=== PATIENT | female | born 1990 | race Caucasian/White ===

== ENCOUNTER 2018-04-29 09:39 | Day surgery (SDC) | payer OTHER ==
--- NOTE | 2018-04-29 07:29 | PDHPUP ---
History & Physical Update H&P update statement: This history and physical update is based on an assessment of the patient which was completed after admission or registration (within 24 hours), but prior to the surgery/procedure. H&P update: H&P reviewed & patient examined, no change in patient's condition since H&P completed
--- NOTE | 2018-04-29 07:30 | POSTOPPROG ---
Post Op Note Date of Operation: 04/29/18 Surgeon: Trevon Lai Anesthesia: IV Sedation Pre-op Diagnosis: lymphoma Post-op Diagnosis: same Procedure: RIJ port with US/fluoro, left ext iliac LN biopsy Inf/Abcess present in the surg proc area at time of surgery?: No EBL: Minimal Specimen(s): lymph node
[2018-04-29] MEDS ORDERED: LR 1,000 ML IV ONE (10:23)
[2018-04-29] MEDS ORDERED: BUPIVACAINE/EPI 0.5% 30 ML SDV ONE (11:13)
[2018-04-29] MEDS ORDERED: LIDOCAINE 1% 300 MG/30 ML SDV ONE (11:13)
[2018-04-29] MEDS ORDERED: EPINEPHrine 1 MG/ML INJ ONE (11:13)
[2018-04-29] MEDS ORDERED: MIDAZOLAM 2 MG/2 ML VIAL IVP ONE (11:19)
--- NOTE | 2018-04-29 11:22 | PDANEPAE ---
ANE History of Present Illness non-Hodgkins lymphoma s/f port and LN BX ANE Past Medical History - Cardiovascular History Hx Hypertension: No Hx Arrhythmias: No Hx Chest Pain: No Hx Coronary Artery / Peripheral Vascular Disease: No Hx CHF / Valvular Disease: No Hx Palpitations: No - Pulmonary History Hx COPD: No Hx Asthma/Reactive Airway Disease: No Hx Recent Upper Respiratory Infection: No Hx Oxygen in Use at Home: No Hx Sleep Apnea: No Sleep Apnea Screening Result - Last Documented: Negative Pulmonary History Comment: NO MMJ SMOKING RECENTLY. HAS PULMONARY FUNCTION TESTING AT [facility] 04/28/18. FOR POSSIBLE VOCAL CORD DYSFUNCTION - Neurologic History Hx Cerebrovascular Accident: No Hx Seizures: No Hx Dementia: No - Endocrine History Hx Diabetes: No Endocrine History Comment: ? PRE DIABETIC - Renal History Hx Renal Disorders: No - Liver History Hx Hepatic Disorders: No - Neurological & Psychiatric Hx Hx Neurological and Psychiatric Disorders: Yes Neurological / Psychiatric History Comment: ANXIETY - Cancer History Hx Cancer: No - Congenital Disorder History Hx Congenital Disorders: No - GI History Hx Gastrointestinal Disorders: No - Other Health History Other Health History: POSSIBLE NEW DX OF LYMPHOMA. LOWER EXT SWELLING. LEG CRAMPS. INTERMITTENT FEVER/CHILLS. BLURRING OF VISION. narcolepsy. ANEMIA - Chronic Pain History Chronic Pain: Yes (ABD,ARMS,CHEST) - Surgical History Prior Surgeries: WISDOM TEETH ANE Review of Systems Review of Systems: - Exercise capacity METS (RN): 4 METS ANE Patient History - Allergies Allergies/Adverse Reactions: SSRI'S Allergy (Uncoded 04/28/18 17:27) GI ISSUES - Home Medications Home medications: home medication list seen and reviewed Home Medications: Bcp HS 04/28/18 [Last Taken 04/29/18 08:30] Ibuprofen PRN 04/28/18 [Last Taken 04/28/18 18:00] - NPO status NPO Status: no food or drink >8 hours NPO Since - Liquids (Date): 04/29/18 NPO Since - Liquids (Time): 08:30 NPO Since - Solids (Date): 04/28/18 NPO Since - Solids (Time): 22:30 - Anes Hx Anes Hx: no prior problems - Smoking Hx Smoking Status: Former smoker - Alcohol Use Alcohol Use: None - Family Anes Hx Family Anes Hx: none Family Hx Anesthesia Complications: NEG ANE Labs/Vital Signs - Vital Signs Blood Pressure: 115/83 Heart Rate: 111 Respiratory Rate: 14 O2 Sat (%): 99 Height: 170.18 cm Weight: 58.06 kg ANE Physical Exam - Airway Neck exam: FROM Mallampati Score: Class 1 Mouth exam: normal dental/mouth exam - Pulmonary Pulmonary: no respiratory distress - Cardiovascular Cardiovascular: regular rate and rhythym - ASA Status ASA Status: II ANE Anesthesia Plan Anesthesia Plan: GA w LMA (LMA vs OA/mask), GA with mask Total IV Anesthesia: Yes
[2018-04-29] MEDS ORDERED: MIDAZOLAM 2 MG/2 ML VIAL ONE (11:32)
[2018-04-29] MEDS ORDERED: fentaNYL 100 MCG/2 ML INJ ONE ×2 (11:33→13:32)
[2018-04-29] MEDS ORDERED: ONDANSETRON 4 MG/2 ML VIAL ONE (11:34)
[2018-04-29] MEDS ORDERED: LIDOCAINE 2% 100 MG/5 ML SYR ONE ×2 (11:34)
[2018-04-29] MEDS ORDERED: PROPOFOL/EMULSION 500 MG/50 ML BOTTLE IV ONE (11:34)
[2018-04-29] MEDS ORDERED: DEXAMETHASONE 4 MG/ML VIAL ONE (11:34)
[2018-04-29] MEDS ORDERED: LIDOCAINE 2% JELLY 5 ML TUBE ONE (11:35)
[2018-04-29] MEDS ORDERED: PROPOFOL 200 MG/20 ML VIAL ONE (12:21)
[2018-04-29] MEDS ORDERED: ACETAMINOPHEN 500 MG TAB PO PRN (12:26)
[2018-04-29] MEDS ORDERED: HYDROCODONE/APAP 5/325 TAB PO PRN (12:26)
[2018-04-29] MEDS ORDERED: ALBUTEROL 3 ML DEYVIAL IH PRN (12:26)
[2018-04-29] MEDS ORDERED: MEPERIDINE 25 MG/0.5 ML AMP IVP PRN (12:26)
[2018-04-29] MEDS ORDERED: PHENYLEPHRINE HCL 100 MCG/ML SYR IVP PRN (12:26)
[2018-04-29] MEDS ORDERED: METOCLOPRAMIDE 10 MG/2 ML VIAL IVP PRN (12:26)
[2018-04-29] MEDS ORDERED: PROMETHAZINE HCL 25 MG/ML INJ IVP PRN (12:26)
[2018-04-29] MEDS ORDERED: NALOXONE HCL 0.4 MG/ML INJ IVP PRN (12:26)
[2018-04-29] MEDS ORDERED: LABETALOL HCL 5 MG/ML 20 ML MDV IVP PRN (12:26)
[2018-04-29] MEDS ORDERED: DEXAMETHASONE 4 MG/ML VIAL IVP PRN (12:26)
[2018-04-29] MEDS ORDERED: LR 500 ML IV PRN (12:26)
[2018-04-29] MEDS ORDERED: ONDANSETRON 4 MG/2 ML VIAL IVP PRN (12:26)
[2018-04-29] MEDS ORDERED: fentaNYL 100 MCG/2 ML INJ IVP PRN (12:26)
[2018-04-29] MEDS ORDERED: oxyCODONE IR 5 MG TAB PO PRN (12:26)
--- NOTE | 2018-04-29 13:14 | POSTANESTH ---
Post Anesthetic Evaluation Cardiovascular Status: Normal, Stable Respiratory Status: Normal, Stable Level of Consciousness/Mental Status: Can Participate in Eval Pain Control: Adequate, Prn Tx Ordered Nausea/Vomiting Control: Adequate, Prn Tx Ordered Complications Possibly Related to Anesthesia: None Noted
[2018-04-29 14:31] VITALS: BP 103/65
--- NOTE | 2018-04-29 20:41 | GOP ---
DATE OF OPERATION: 04/29/2018 SURGEON: Trevon Lai MD ANESTHESIA: IV general. ANESTHESIOLOGIST: Dr. Orr. PREOPERATIVE DIAGNOSIS: Lymphoma. POSTOPERATIVE DIAGNOSIS: Lymphoma. PROCEDURE PERFORMED: 1. Right internal jugular single-lumen PowerPort placement with ultrasound and fluoroscopic guidance. 2. Left external iliac lymph node biopsy. FINDINGS: See below. INDICATIONS: 27-year-old female, with progressive adenopathy with a prior core needle biopsy concerning for Hodgkin disease, however, not completely diagnostic. She is undergoing a port placement for anticipated chemotherapy as well as external iliac lymph node biopsy for further tissue sampling. Risks and benefits were explained, of bleeding, infection, port malfunction, pneumothorax. All questions were answered. She desires to proceed. DESCRIPTION OF PROCEDURE: Monitored anesthesia care was started. The right neck and chest as well as the left lower quadrant were infiltrated with 1% lidocaine and 0.5% Marcaine. The jugular vein was directly punctured using ultrasound guidance. A guidewire passed smoothly into the atrium and IVC as confirmed using fluoroscopy. There was no difficulty traversing through the superior vena cava. A counter incision was made on the chest wall. The low- profile port was tunneled cephalad. The vein was dilated under direct fluoroscopic visualization. The catheter passed to the top of the atrium. There was smooth contouring within the neck as well as satisfactory terminal positioning above the heart. The port flushed smoothly with heparinized saline solution. The wounds were closed in layers with absorbable sutures and Dermabond was applied. The left lower quadrant was explored through a small oblique incision above the inguinal ligament. The external oblique fascia was opened. The transversalis fascia was also opened, allowing for exposure to the retroperitoneal/external iliac artery. The 2 cm lymph node was dissected away from the external iliac artery and sent for frozen sectioning; albeit inconclusive on frozen, it was noted to be pathologically abnormal and adequate for further tissue diagnosis. Satisfactory hemostasis was assured throughout the retroperitoneal space. The wound was closed in layers with absorbable sutures followed by Dermabond. The patient was awoken in the operating room and taken to Recovery uneventfully. Copy requested to: ESTEBAN Sanchez /[id number]/MODL MTDD
== END 2018-04-29 14:33 | disposition home or self-care (01) ==
LOC: FSGY 09:39
PROVIDERS: ATTEND Surgery
DX: C81.1 Nodular sclerosis Hodgkin lymphoma (principal); R59.9 Enlarged lymph nodes, unspecified
CPT/HCPCS: 88184-90; 88185-91; C1788; J0171; J1100; J1642; J2001; J2250; J2405; J2704; J3010

== ENCOUNTER 2018-11-25 13:20 | Emergency (ER) | payer OTHER ==
--- NOTE | 2018-11-25 15:06 | EDPHY ---
H & P Stated Complaint: RUQ pain on and off since November 03, Source: Patient Exam Limitations: No limitations - Personal History LMP (Females 10-55): 1-7 Days Ago - Medical/Surgical History Hx Diabetes: No Other PMH: lymphoma diagnosed April 2018, in remission - Family History Significant Family History: Other (Mother with DVT) - Social History Smoking Status: Former smoker Alcohol Use: None Drug Use: None Time Seen by Provider: 11/25/18 13:39 HPI/ROS: This patient presents with an achy discomfort to the right upper chest and mid chest area 3/10 intensity at baseline 7/10 with a deep breath. At times there is stabbing quality to the pain. She 1st noticed subtle symptoms 4 days ago that were intermittent but today the pain has become constant and increased a bit in intensity. He has not taken any medications for the discomfort prior to arrival. Her history is notable for Hodgkin's lymphoma in remission. She had rounds of chemotherapy with resolution of active findings, seen by Dr. Shirley. She had a right subclavian port that was DC on November 09. She reports that she 1st noticed the discomfort to the area few days prior to its removal. She denies any other associated symptoms and no other exacerbating factors. ROS: Constitutional: No fevers HEENT: No URI symptoms pulmonary: No cough shortness of breath cardiovascular: No lightheadedness heart palpitations. No lower extremity swelling. Cardiovascular: No heart palpitations or lightheadedness GI: No complaints integumentary: No skin rash 10 point review of symptoms is performed and otherwise negative with exception of pertinent positives and negatives listed in HPI and ROS (Pako Enrique) - Medical/Surgical History PMH: VTE risk factors: Recent vascular port, history of lymphoma, family history of mother with multiple DVTs Family history: Mother with DVTs (Pako Enrique) - Physical Exam Exam: General Appearance: Alert, no distress. Eyes: Pupils equal and round no pallor or injection. ENT, Mouth: Mucous membranes moist. Respiratory: There are no retractions, lungs are clear to auscultation. Cardiovascular: Regular rate and rhythm. No murmur gallop or rub no lower extremity edema or upper extremity edema pulses are 2+ in upper extremities bilaterally and symmetric. Gastrointestinal: Abdomen is soft and nontender, no masses, bowel sounds normal. Neurological: GCS 15 Skin: Warm and dry, no rashes. The site of the port in the anterior chest wall this below the right clavicle is clean dry intact without erythema, fluctuance or other infectious findings. Musculoskeletal: Neck is supple nontender. Extremities are symmetrical, full range of motion. Psychiatric: Mood and affect are normal DIFFERENTIAL DIAGNOSIS: After history and physical exam differential diagnosis was considered for VTE, pulmonary embolism, pericarditis, pneumonia, pneumothorax, pleurisy, musculoskeletal pain doubt sepsis given lack of fever or other symptoms of infectious etiology (Pako Enrique) Constitutional: Initial Vital Signs Temperature (C) 36.8 C 11/25/18 13:29 Heart Rate 97 11/25/18 13:29 Respiratory Rate 18 11/25/18 13:29 Blood Pressure 125/79 H 11/25/18 13:29 O2 Sat (%) 96 11/25/18 13:29 O2 Delivery Mode Room Air Allergies/Adverse Reactions: SSRI'S Adverse Reaction (Uncoded 11/25/18 13:33) GI ISSUES Home Medications: Medication Instructions Recorded Bcp HS 04/28/18 Ibuprofen PRN 04/28/18 Medical Decision Making - Diagnostics EKG Interpretation: 12 lead EKG is interpreted in [place] by emergency department physician. It shows sinus arrhythmia with a rate of 81. No ischemic changes. (Valorie Willett) Imaging Results: Imaging Impressions Extremity Venous Study 11/25/18 13:55 Impression: There is no sonographic evidence of venous thrombosis in the right arm. Findings were discussed with Valorie Willett MD at 15:26, on 11/25/2018. Chest/Thorax CTA 11/25/18 15:29 Impression: 1. There is no CT evidence for pulmonary artery thromboembolic disease. 2. There is no focal infiltrate or pleural effusion. 3. There has been no significant interval change in the appearance of the anterior mediastinal mass since the PET/CT scan one month ago. Findings were discussed with VALORIE WILLETT MD at 16:21, on 11/25/2018. ED Course/Re-evaluation: Patient declined analgesics. Patient is at moderate to high risk for venous thromboembolic disease. Will start with Doppler ox upper extremity ultrasound to look at subclavian/ innominate in jugular region. If this is negative will proceed to CT angio chest for further evaluation/rule out PE (Pako Enrique) I assumed care of this patient from Dr. Enrique at 3:00 p.m.. Awaiting results of right upper extremity ultrasound. She is resting comfortably. Right upper extremity ultrasound reported to me by Dr. Kale Cortez; it is negative for clot. Will proceed with CT angiogram of the chest to eliminate PE. CT angiogram of the chest reported to me by Dr. Cortez. It is negative for PE. He notes that there is no infiltrate and no effusion. I reviewed these radiographic findings with the patient and reassured her that we have not found a life-threatening problem that explains her chest pain. I am giving her recommendations for treating musculoskeletal pain. We discussed the danger signs that should prompt her to be re-evaluated immediately. (Valorie Willett) - Data Points Laboratory Results: 11/25/18 11/25/18 14:31 14:18 POC Sodium 142 mEq/L mEq/L (135-145) POC Potassium 3.7 mEq/L mEq/L (3.3-5.0) POC Chloride 108.0 mEq/L mEq/L (97-110) POC Total CO2 26 mEq/L mEq/L (22-31) POC BUN 8 mg/dL mg/dL (7-23) POC Creatinine 0.9 mg/dL mg/dL (0.6-1.0) POC Glucose 86 mg/dL mg/dL (70-100) POC Calcium 9.6 mg/dL mg/dL (8.5-10.4) POC Total Bilirubin 0.7 mg/dL mg/dL (0.1-1.4) POC GGT 11 IU/L IU/L (5-65) POC AST 24 IU/L IU/L (14-46) POC ALT 13 IU/L IU/L (9-52) POC Alk Phosphatase 44 IU/L IU/L (38-126) POC Total Protein 7.5 g/dL g/dL (6.3-8.2) POC Albumin 3.8 g/dL g/dL (3.5-5.0) POC Amylase 65 IU/L IU/L (30-110) Point of Care Test Results: CBC CBC Collection Date 11/25/18 CBC Collection Time 14:14 WBC 7.19 RBC 4.91 HGB 13.9 HCT 41.8 PLT 290 Neut # 4.31 Neut 59.9 LYMPH # 2.32 LYMPH 32.3 MCV 85.1 Chemistry 11/25/18 11/25/18 14:31 14:18 POC Sodium 142 mEq/L mEq/L (135-145) POC Potassium 3.7 mEq/L mEq/L (3.3-5.0) POC Chloride 108.0 mEq/L mEq/L (97-110) POC Total CO2 26 mEq/L mEq/L (22-31) POC BUN 8 mg/dL mg/dL (7-23) POC Creatinine 0.9 mg/dL mg/dL (0.6-1.0) POC Glucose 86 mg/dL mg/dL (70-100) POC Calcium 9.6 mg/dL mg/dL (8.5-10.4) POC Total Bilirubin 0.7 mg/dL mg/dL (0.1-1.4) POC GGT 11 IU/L IU/L (5-65) POC AST 24 IU/L IU/L (14-46) POC ALT 13 IU/L IU/L (9-52) POC Alk Phosphatase 44 IU/L IU/L (38-126) POC Total Protein 7.5 g/dL g/dL (6.3-8.2) POC Albumin 3.8 g/dL g/dL (3.5-5.0) POC Amylase 65 IU/L IU/L (30-110) Liver Function Tests LFT Collection Date 11/25/18 LFT Collection Time 14:14 Departure - Departure Disposition: Home, Routine, Self-Care Clinical Impression: Musculoskeletal chest pain Condition: Good Instructions: Chest Pain (ED) Additional Instructions: I think that your pain is likely musculoskeletal. It is not coming from your lungs or your heart. I am recommending [id number] pain medication-- acetaminophen and ibuprofen--as below. Adult Pain & Fever Control: We recommend Acetaminophen (Tylenol) and Ibuprofen (Motrin,Advil) for pain and fever control. When fever is high or pain severe, both drugs can be used at the same time, but at different intervals. Please note the time differences. Your dose is: Acetaminophen 650mg every 4 to 6 hours Ibuprofen 400mg every 6 hours with food OR Note: do not take Acetaminophen with Hydrocodone (Vicodin, Lortab) or Oycodone (Percocet). These medications also contain Acetaminophen. No more than 3000mg of Acetaminophen should be taken in 24 hours (for an adult). If you develop severe debilitating chest pain, difficulty breathing, fever and or cough--you should be re-evaluated immediately. I am giving you the phone number for Dr. Fay and also the number for Dr. Cheikh Peña. Dr. Peña is web application tester for the emergency department which means that he should have appointments available should you desire to set up care with him. Referrals: Elodia Ortega PA [Physician Sheet Metal Lay Out Worker] - As per Instructions Romina Fay MD [Medical Doctor] - As per Instructions Cheikh Peña MD [Medical Doctor] - As per Instructions
--- NOTE | 2018-11-25 15:23 | CPEKG ---
Test Reason : OPEN Blood Pressure : / mmHG Vent. Rate : 081 BPM Atrial Rate : 088 BPM P-R Int : 122 ms QRS Dur : 086 ms QT Int : 387 ms P-R-T Axes : 062 081 042 degrees QTc Int : 450 ms Sinus arrhythmia Confirmed by Nurys Willett ([id number]) on 11/25/2018 3:23:39 PM Referred By: TAI IVORY Confirmed By:Nurys Willett
[2018-11-25] MEDS ORDERED: IOPAMIDOL (ISOVUE 370) 100 ML BTL IV ONE (15:39)
[2018-11-25 16:08] VITALS: BP 104/73
== END 2018-11-25 16:56 | disposition home or self-care (01) ==
LOC: CED 13:20
DX: R07.89 Other chest pain (principal)
CPT/HCPCS: 71275-PO; 80048-ER; 80076-ER; 82150-ER; 85025-QW-ER; 85379-QW-ER; 93971-PO; 99285-ER; Q9967